=== PATIENT | male | born 1990 | race African-American/Black ===

== ENCOUNTER 2024-12-05 01:27 | Emergency (ER) | payer OTHER ==
[~2024-12-05] VITALS: Ht 170.2 cm; Wt 67.1 kg
[2024-12-05] MEDS ORDERED: CYCLOBENZAPRINE 10 MG TABLET ONE (02:29)
[2024-12-05] MEDS ORDERED: KETOROLAC TROMETHAMINE INJ 30 MG/ML VIAL ONE (02:29)
[2024-12-05] MEDS: KETOROLAC TROMETHAMINE INJ 30 MG/ML VIAL IM ONE (02:35)
[2024-12-05] MEDS: CYCLOBENZAPRINE 10 MG TABLET PO ONE (02:35)
[2024-12-05] MEDS ORDERED: LIDO30AD10 TP (02:42)
[2024-12-05] MEDS ORDERED: KETO10TA2 PO (02:42)
[2024-12-05] MEDS ORDERED: CYCL5TAB PO (02:42)
[2024-12-05] MEDS: LIDOCAINE 5% (PATCH) 1 EA PATCH TP SCH (02:47)
[2024-12-05] MEDS: LIDOCAINE 5% (PATCH) 1 EA PATCH TP ONE (02:48)
[2024-12-05 03:09] VITALS: BP 110/65; TEMP 98; O2SAT 96
== END 2024-12-05 03:10 | disposition home or self-care (01) ==
LOC: ER 01:30
DX: S13.4XXA Sprain of ligaments of cervical spine, initial encounter (principal); V43.52XA Car driver injured in collision with other type car in traffic accident, initial encounter; Y93.89 Activity, other specified; Y92.488 Other paved roadways as the place of occurrence of the external cause; Y99.8 Other external cause status
CPT/HCPCS: J1885